=== PATIENT | female | born 1970 | race Caucasian/White ===

== ENCOUNTER → 2017-06-12 | Outpatient (CLI) | payer BC | LOC: MC.RAD 08:40 | DX: Z12.31 Encounter for screening mammogram for malignant neoplasm of breast (principal) ==

== ENCOUNTER → 2018-01-28 | Outpatient (CLI) | payer BC | LOC: COL.VAS 14:14 | DX: M79.661 Pain in right lower leg (principal); R22.41 Localized swelling, mass and lump, right lower limb ==

== ENCOUNTER → 2018-01-28 | Outpatient (CLI) | payer BC ==
[2018-01-28 12:57] LABS: BASO % 0.6 % (0.0-2.0); EOS # 0.1 (0.0-0.7); EOS % 2.1 % (0-4.0); GRAN # 4.1 (1.4-6.5); GRAN % 63.9 % (42.2-75.2); LYMPH # 1.5 (1.2-3.4); MEAN CELL VOLUME 89 fl (80.0-100.0); MEAN CORPUSCULAR HGB CONC 35 g/dl (33.0-37.0); MEAN PLATELET VOLUME 9.7 fl (7.4-10.4); MONO # 0.6 (0.1-0.6); MONO % 9.2 % (1.7-9.3); PLATELET COUNT 294 K/mm3 (130-400); RED BLOOD COUNT 3.69 M/mm3 (4.10-5.30); REDCELL DISTRIBUTION WIDTH-CV 12.4 % (11.5-14.5)
[2018-01-28 12:59] LABS: HEMATOCRIT 32.9 % (37.0-47.0); HEMOGLOBIN 11.4 g/dl (12.5-16.0); MEAN CORPUSCULAR HEMOGLOBIN 31 pg (27.0-31.0)
== END ==
LOC: COL.LAB 12:23
PROVIDERS: Family Medicine
DX: L03.115 Cellulitis of right lower limb (principal); R22.41 Localized swelling, mass and lump, right lower limb

== ENCOUNTER → 2018-07-10 | Outpatient (CLI) | payer BC | LOC: MC.RAD 14:11 | DX: Z12.31 Encounter for screening mammogram for malignant neoplasm of breast (principal) ==

== ENCOUNTER → 2019-08-18 | Outpatient (CLI) | payer BC | LOC: MC.RAD 13:51 | DX: Z12.31 Encounter for screening mammogram for malignant neoplasm of breast (principal); N64.89 Other specified disorders of breast ==

== ENCOUNTER → 2020-08-19 | Outpatient (CLI) | payer BC | LOC: MC.RAD 16:07 | DX: Z12.31 Encounter for screening mammogram for malignant neoplasm of breast (principal) ==

== ENCOUNTER → 2021-10-05 | Outpatient (CLI) | payer BC | LOC: MC.RAD 10:56 | DX: Z12.31 Encounter for screening mammogram for malignant neoplasm of breast (principal) ==

== ENCOUNTER → 2022-12-12 | Outpatient (CLI) | payer BC | LOC: MC.RAD 08:55 | DX: Z12.31 Encounter for screening mammogram for malignant neoplasm of breast (principal) ==

== ENCOUNTER → 2024-01-31 | Outpatient (CLI) | payer BC | LOC: MC.RAD 16:30 | DX: Z12.31 Encounter for screening mammogram for malignant neoplasm of breast (principal) ==

== ENCOUNTER → 2024-05-19 | Outpatient (CLI) | payer BC ==
[~2024-05-19] VITALS: Ht 154.9 cm; Wt 64.3 kg
[~2024-05-19] MED LIST: ASPIRIN E.C. 8181 MG PO; BENADRYL25 M2 PO; ESTRACE 1MG1 MG/TAB PO; MAGNESIUM250 M1 PO; MASON NATURAL1200 MG PO; MELATONIN5 M1 SL; MOBIC15 MG PO; MULTI VITAMINS1 TAB PO; PHARMASSURE CHE30 MG PO; PROVERA5 MG PO; Triamcinolone 40 MG/ML 1 ML VIAL IJ SCH; VITAMIN B COMPL1 SGL PO; VITAMIN B125000 MCG PO; VITAMIN D31000 I1 PO
[2024-05-19 13:44] VITALS: BP 129/75; PULSE 75; TEMP 97.8
[2024-05-19 14:30] VITALS: BP 154/90; PULSE 70
== END ==
LOC: COL.RAD 13:00
DX: M54.50 Low back pain, unspecified (principal)
CPT/HCPCS: J0665; J3301

== ENCOUNTER → 2024-06-11 | Outpatient (CLI) | payer BC ==
[~2024-06-11] VITALS: Ht 154.9 cm; Wt 65.3 kg
[~2024-06-11] MED LIST changes: +EVENING PRIMR1300 MG PO; +INDERAL 20MG20 MG PO
[2024-06-11 12:36] VITALS: BP 119/66; PULSE 62; TEMP 97.7
[2024-06-11 13:10] VITALS: BP 135/87; PULSE 62
--- NOTE | 2024-06-11 13:36 | NUR ---
PATIENT COMPLETED HER RECOVERY PERIOD WITHOUT ANY ISSUES. PATIENT IS ABLE TO WALK WITHOUT ANY ASSISTANCE OR ISSUES. PATIENT DENIES ANY NEW PAIN, TINGLING, OR NUMBNESS. PATIENT FINISHED HER WATER AND BLUEBERRY MUFFIN WITHOUT ANY TATIANA. PATIENT DECLINED TO TAKE WRITTEN D/C INSTRUCTIONS, BUT IS ABLE TO TEACH BACK. PATIENT ESCORTED TO HER RIDE VIA WHEELCHAIR WITH ALL OF HER BELONGINGS. PATIENT ABLE TO GET INTO THE FRONT PASSENGER SEAT OF HER RIDE WITHOUT ASSISTANCE OR ISSUE WITH HER BELONGINGS. ALL NEEDS MET.
== END ==
LOC: COL.RAD 12:16
DX: M54.50 Low back pain, unspecified (principal)
CPT/HCPCS: J0665; J3301

== ENCOUNTER → 2024-06-26 | Outpatient (CLI) | payer BC ==
[~2024-06-26] VITALS: Ht 154.9 cm; Wt 64.4 kg
[2024-06-26 08:21] VITALS: BP 131/84; PULSE 61; TEMP 97.6
[2024-06-26 08:58] VITALS: BP 135/72; PULSE 60
--- NOTE | 2024-06-26 09:23 | NUR ---
PATIENT IS AWAKE AND ALERT. PATIENT IS ABLE TO WALK AROUND WITHOUT ANY ISSUES. DISCHARGE INSTRUCTIONS REVIEWED WITH PATIENT AND SHE IS ABLE TO TEACH BACK. PATIENT IS ABLE TO WALK WITHOUT ANY ISSUES OR ASSISTANCE. PATIENT DENIES ANY TINGLING OR NUMBNESS AND SAYS THERE IS NO NEW PAIN. BANDAGE IS CLEAN, DRY, AND INTACT. ESCORTED PATIENT TO THE PATIENT ENTRANCE AFTER COMPLETION OF HER RECOVERY TIME. TOOK PATIENT IN A WHEELCHAIR WITH ALL OF HER PERSONAL ITEMS AND PAPERWORK. PATIENT ABLE TO GET INTO FRONT PASSENGER SEAT WITHOUT ANY ISSUES OR ASSISTANCE. ALL NEEDS MET.
== END ==
LOC: COL.RAD 07:54
DX: M54.16 Radiculopathy, lumbar region (principal)
CPT/HCPCS: J0665; J3301